=== PATIENT | female | born 1970 | race African-American/Black ===

== ENCOUNTER 2020-04-21 12:44 | Outpatient (CLI) | payer MEDICAID ==
--- NOTE | 2020-04-21 14:43 | XRAY Report ---
PROCEDURE: Foot 2 View RT INDICATIONS: PAIN RIGHT FOOT TECHNIQUE: 2 views of the foot were acquired. COMPARISON: None FINDINGS: Bones: No fractures or dislocations. No suspicious bony lesions. Soft tissues: No tibiotalar joint effusion. Achilles tendon appears normal. IMPRESSION: No trauma found, source of pain is not seen. Reviewed by: Jesu Cueva MD on 04/21/2020 2:41 PM PDT Approved by: Jesu Cueva MD on 04/21/2020 2:41 PM PDT Station ID: [id number]
== END 2020-04-21 12:45 | disposition home or self-care (01) ==
LOC: DI 12:44
DX: M79.671 Pain in right foot (principal)

== ENCOUNTER 2021-04-25 16:36 | Outpatient (CLI) | payer MEDICAID | END 2021-04-25 16:37 | disposition home or self-care (01) | LOC: COV 16:36 | PROVIDERS: ATTEND Internal Medicine Gastroenterology | DX: Z53.9 Procedure and treatment not carried out, unspecified reason (principal) ==

== ENCOUNTER 2024-02-11 08:58 | Emergency (ER) | payer MEDICAID ==
--- NOTE | 2024-02-11 10:12 | ED Physician Documentation ---
PD HPI BACK PAIN - Stated complaint Stated Complaint: LOWER LT BACK/KNEE PX - Chief complaint Chief Complaint: Back Pain - History obtained from History obtained from: Patient - Additional information Additional information: Patient is a 54-year-old female with a history of hypertension presenting for evaluation of left lower back pain starting yesterday as she was lifting up a mattress to change sheets. Has chronic pain in L knee which is worse today. Denies numbness or tingling. No fall or trauma. Does not take a blood thinner. Denies weakness. No bowel or bladder incontinence, saddle anesthesia. Denies fever. No abdominal pain. 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 : None HEENT: None Psych: None Musculoskeletal: Osteoarthritis Derm: None - Past Surgical History Past Surgical History: Yes Ortho: Carpal Tunnel surgery /[employer] C[employer]TER: Hysterectomy - Present Medications Home Medications: Ambulatory Orders Medication Instructions Recorded Confirmed Amlodipine Besylate [Norvasc] 10 mg PO DAILY 02/11/24 02/11/24 Cyclobenzaprine [Flexeril] 10 mg PO TID PRN #20 tablet 02/11/24 Lidocaine [Lidoderm] 1 each TP DAILY PRN #10 patch 02/11/24 - Allergies Allergies/Adverse Reactions: Allergies Allergy/AdvReac Type Severity Reaction Status Date / Time No Known Drug Allergies Allergy Verified 02/11/24 09:17 - Social History Does the pt smoke?: No Smoking Status: Never smoker Does the pt drink ETOH?: No Does the pt have substance abuse?: Yes Substance Use and Type: Marijuana - Immunizations Immunizations are current?: Yes PD ED PE NORMAL - General General: Alert and oriented X 3, No acute distress, Well developed/nourished - HEENT HEENT: Atraumatic, Moist mucous membranes, Pharynx benign - Neck Neck: Supple, no meningeal sign - Cardiac Cardiac: RRR, Strong equal pulses - Respiratory Respiratory: No respiratory distress, Clear bilaterally - Abdomen Abdomen: Normal bowel sounds, Soft, Non tender, Non distended - Back Back: No CVA TTP, No spinal TTP, Other (Left paralumbar tenderness to palpation) - Derm Derm: Warm and dry - Extremities Extremities: No edema, Other (Normal strength in bilateral hip flexion, knee extension and flexion, ankle dorsiflexion and plantarflexion) - Neuro Neuro: Alert and oriented X 3, No motor deficit, No sensory deficit, Normal speech Results - Vitals Vitals: Vital Signs - 24 hr 02/11/24 02/11/24 09:17 10:38 Temperature 36.2 C L 36.4 C L Heart Rate 82 63 Respiratory 18 16 Rate Blood Pressure 171/97 H 157/80 H O2 Saturation 97 98 Oxygen O2 Source Room air PD Medical Decision Making - ED course ED course: Pt with L sided back pain after lifting mattress yesterday. ALso chronic pain in knees which is worse today. Normal ROM at joints. No trauma. Neurovascularly intact. Pt is ambulatory and no red flag signs/symptoms regards to back pain. No midline tenderness. Recommend trial of supportive care with NSAIDs, lidocaine patches, muscle relaxers and follow up with PCP. Pt advised on concerning symptoms to return for. Departure - Departure Disposition: 01 Home, Self Care Clinical Impression: Back strain, Chronic knee pain Condition: Stable Instructions: ED Back Care Tips, ED Low Back Pain Injury Follow-Up: TEQUILA GONZALES ARNP [Primary Care Provider] - Prescriptions: Cyclobenzaprine [Flexeril] 10 mg PO TID PRN #20 tablet PRN Reason: Spasms Lidocaine [Lidoderm] 1 each TP DAILY PRN #10 patch PRN Reason: Moderate Pain (Level 4-6) Comments: Your exam today suggest that you have strained your lower back. I sent prescriptions to [facility] in [place] to include a muscle relaxer as well as lidocaine patches. I would also recommend an anti-inflammatory such as ibuprofen or acetaminophen. I would recommend follow-up with your primary care doctor as you may need further testing or treatment for your back pain. Return to the ER with any worsening such as worsening pain,Pain in a new location, difficulty in controlling bowel or bladder movements or any other concerns. Forms: Activity restrictions Discharge Date/Time: 02/11/24 10:38
[2024-02-11 10:39] VITALS: BP 157/80; O2SAT 98
== END 2024-02-11 10:38 | disposition home or self-care (01) ==
LOC: ED 08:58
DX: S39.012A Strain of muscle, fascia and tendon of lower back, initial encounter (principal); X50.0XXA Overexertion from strenuous movement or load, initial encounter; M25.562 Pain in left knee; M25.561 Pain in right knee; G89.29 Other chronic pain
CPT/HCPCS: 99282; 99283

== ENCOUNTER 2024-06-26 20:01 | Emergency (ER) | payer MEDICAID ==
[2024-06-26 20:10] VITALS: BP 170/90; O2SAT 100
--- NOTE | 2024-06-26 20:38 | XRAY Report ---
PROCEDURE: Ankle 3+V LT INDICATIONS: Trauma TECHNIQUE: 2 views of the ankle were acquired. COMPARISON: None. FINDINGS: Bones: No fractures or dislocations. Ankle mortise is normally aligned. No suspicious bony lesions . Soft tissues: No tibiotalar joint effusion. Achilles tendon appears normal. Mild soft tissue swell ing about the ankle. IMPRESSION: No acute bony abnormality. Reviewed by: Arnaldo Cooper MD on 06/26/2024 8:37 PM PDT Approved by: Arnaldo Cooper MD on 06/26/2024 8:37 PM PDT Station ID: [id number]
--- NOTE | 2024-06-26 20:55 | ED Physician Documentation ---
PD HPI LOWER EXT INJURY - Stated complaint Stated Complaint: LT ANKLE INJ - Chief complaint Chief Complaint: Trauma Ext - Additional information Additional information: 54-year-old female with history of hypertension presents emergency department for left ankle pain and swelling. Patient says that she has been struggling with some pain on the sole of her foot now for some time and so she walks trying to avoid triggering that pain and because of that she excellently rolled her ankle today while in the bathroom while taking an odd step to avoid placing pain onto that foot. She noticed immediate swelling and pain. No bruising there is obvious swelling no deformity. She did not hit her head. She is not any blood thinners. 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 : None HEENT: None Psych: None Musculoskeletal: Osteoarthritis Derm: None - Past Surgical History Past Surgical History: Yes Ortho: Carpal Tunnel surgery /[employer]OL PRINCIPAL: Hysterectomy - Present Medications Home Medications: Ambulatory Orders Medication Instructions Recorded Confirmed Amlodipine Besylate [Norvasc] 10 mg PO DAILY 02/11/24 02/11/24 Cyclobenzaprine [Flexeril] 10 mg PO TID PRN #20 tablet 02/11/24 Lidocaine [Lidoderm] 1 each TP DAILY PRN #10 patch 02/11/24 - Allergies Allergies/Adverse Reactions: Allergies Allergy/AdvReac Type Severity Reaction Status Date / Time No Known Drug Allergies Allergy Verified 06/26/24 20:03 - Social History Does the pt smoke?: No Smoking Status: Never smoker Does the pt drink ETOH?: No Does the pt have substance abuse?: Yes - Immunizations Immunizations are current?: Yes - POLST Patient has POLST: No PD ED PE NORMAL - Vitals Vital signs reviewed: Yes - General General: Alert and oriented X 3, No acute distress, Well developed/nourished - Derm Derm: Normal color, No rash - Extremities Extremities: No calf tenderness / cord, Other - Free text exam Free text exam: Left lower extremity: Obvious swelling to the lateral malleolus Achilles is nontender and intact patient able to flex and extend and rotate inversely and externally but with tenderness. Tenderness to the lateral malleolus no tenderness over the dorsalis portion of the foot able to wiggle all toes CMS intact strong dorsalis pedis pulse Results - Vitals Vitals: Vital Signs - 24 hr 06/26/24 20:03 Temperature 36.5 C Heart Rate 88 Respiratory 16 Rate Blood Pressure 170/90 H O2 Saturation 100 Oxygen O2 Source Room air - Rads (name of study) Left ankle x-rays Relevant Findings:: Final report received, EMP independent interpretation of test, Other (No acute bony abnormalities) PD Medical Decision Making - ED course ED course: 54-year-old female presents emergency department for left ankle swelling and pain after inversely rolling ankle. No previous trauma or injuries to this ankle in the past differentials include but are not limited to contusion, sprain, fracture. X-rays are complete for further evaluation and do not reveal any acute bony abnormality making me less suspicious for possible fracture there is no significant swelling or bruising although patient said that she did fall on her ankle so contusion could still be in the differential and patient does appear to have quite a bit of swelling and tenderness to the lateral malleolus concerning for an ankle sprain. She is placed in a walking boot and told to stay off of it for the next few days and to follow-up with her primary care provider for repeat imaging in 7 to 10 days if no fracture on second set of imaging patient is cleared to go back to work with a walking boot she sent home with crutches and walking boot return precautions given patient told to manage pain with Tylenol ibuprofen she has an appoint with medical record administrator soon for the foot pain that she was talking about that prevents her from being able to fully ambulate on her left foot. All questions answered patient safe for discharge. Departure - Departure Disposition: 01 Home, Self Care Clinical Impression: Sprain of left ankle Instructions: Ankle Sprain Comments: Thank you for trusting us with your care. We have completed x-rays of your right ankle we are not seeing any acute fractures or abnormalities at this point in time. Please follow-up with your primary care provider in 7 to 10 days if your pain has not improved for repeat x-rays if they are still negative then this is most likely just a ankle sprain. We are sending you home in a walking boot use the crutches as needed alternate Tylenol ibuprofen for pain discomfort. Forms: PCP List, Activity restrictions Discharge Date/Time: 06/26/24 22:07
== END 2024-06-26 22:07 | disposition home or self-care (01) ==
LOC: ED 20:01
DX: S93.402A Sprain of unspecified ligament of left ankle, initial encounter (principal); X50.1XXA Overexertion from prolonged static or awkward postures, initial encounter; Y93.89 Activity, other specified; Y92.002 Bathroom of unspecified non-institutional (private) residence as the place of occurrence of the external cause
CPT/HCPCS: 99283; 99284